=== PATIENT | female | born 1960 | race Caucasian/White ===

== ENCOUNTER 2018-03-31 04:34 | Inpatient (IN) | payer OTHER ==
[~2018-03-31] VITALS: Ht 154.9 cm; Wt 103.5 kg
[2018-03-31] MEDS ORDERED: MELO15TA24 PO (05:19)
[2018-03-31] MEDS ORDERED: SIMV40TA3 PO (05:19)
[2018-03-31] MEDS ORDERED: LIRA0.6P INJ (05:19)
[2018-03-31] MEDS ORDERED: LISI5TAB7 PO (05:19)
[2018-03-31] MEDS ORDERED: LEVO137T3 PO (05:19)
[2018-03-31] MEDS ORDERED: FLUO20CA8 PO (05:19)
[2018-03-31] MEDS ORDERED: IPRA4AER INH (05:19)
[2018-03-31] MEDS ORDERED: INSU100V8 SQ (05:19)
[2018-03-31] MEDS ORDERED: MIRT15TA4 PO (05:19)
--- NOTE | 2018-03-31 05:20 | NUR ---
report from mona cisneros. Pt has no pain at this time. pt a transfer from [place]. med rec complete. lab at bedside
--- NOTE | 2018-03-31 05:53 | NUR ---
LAB CALLS WITH ELEVATED TROP 2.260 AWARE
--- NOTE | 2018-03-31 05:59 | NUR ---
PT ARRIVED ON HEPARIN DRIP AT 1000 UNITS PER HOUR WITH A 5000 UNIT BOLUS. DRIP WAS STARTED PRIOR TO ARRIVAL AT APPROX 0309 AM. DRIP ADJUSTED TO 900 UNITS PER OUR WEIGHT BASED PROTOCOL.ANTI XA DRAWN UPON PTS ARRIVAL. ANTI XA SOULD BE REDRAWN AT 0909 THIS MORNING PER OUR PROTOCOL. PT RESTING. VSS. PT DENIES PAIN. CALL LIGHT IN REACH
[2018-03-31] MEDS ORDERED: HEPARIN 5,000 UNITS/ML, 1ML IV PRN (06:00)
[2018-03-31] MEDS ORDERED: HEPARIN 25,000 UNITS/500ML PMX 500 ML IV PRN (06:00)
--- NOTE | 2018-03-31 07:23 | NUR ---
RECEIVED REPORT AND ASSUMED PT. CARE. PT. IS RESTING WITH THE CP MONITOR IN PLACE. HOSPITAL ADMITTING MD IS AT THE BEDSIDE. PT.'S VITALS ARE STABLE.
--- NOTE | 2018-03-31 07:25 | NUR ---
PT.'S HEPARIN GTT IS INFUSING ON THE PUMP ORDERED.
[2018-03-31] MEDS ORDERED: SODIUM CHLORIDE 0.9% 1,000 ML IV SCH (07:27)
[2018-03-31] MEDS ORDERED: POLYETHYLENE GLYCOL 17 GM PACKET PO PRN (07:30)
[2018-03-31] MEDS ORDERED: ACETAMINOPHEN 325 MG TABLET PO PRN (07:30)
[2018-03-31] MEDS ORDERED: ENALAPRILAT 1.25 MG/ML, 2ML IVPush PRN (07:30)
[2018-03-31] MEDS ORDERED: MORPHINE SULFATE 4 MG/ML, 1ML IVPush PRN (07:30)
[2018-03-31] MEDS ORDERED: BISACODYL 10 MG SUPP PR PRN (07:30)
[2018-03-31] MEDS ORDERED: hydrALAzine 20 MG/ML, 1ML IVPush PRN (07:30)
[2018-03-31] MEDS ORDERED: DOCUSATE 100 MG CAPSULE PO PRN (07:30)
[2018-03-31] MEDS ORDERED: GABAPENTIN 300 MG CAPSULE PO PRN (07:30)
[2018-03-31] MEDS ORDERED: LABETALOL 5MG/ML, 20ML IVPush PRN (07:30)
[2018-03-31 07:48] LABS: MEAN CORPUSCULAR HEMOGLOBIN 30.1 pg (27.0-34.8); MEAN CORPUSCULAR VOLUME 91.4 fL (80-100); MEAN PLATELET VOLUME 8.1 fL (7.4-10.4); PLATELET COUNT 422 x10^3/uL (130-400); RED BLOOD COUNT 4.67 x10^6/uL (3.82-5.3); RED CELL DISTRIBUTION WIDTH 15.5 % (9.6-15.2)
[2018-03-31 07:59] LABS: ALANINE AMINOTRANSFERASE 22 U/L (12-78); ANION GAP 10 mmol/L (5-15); CALCIUM 8.6 mg/dL (8.5-10.1); CHLORIDE 110 mmol/L (98-107); CREATININE 1.17 mg/dL (0.55-1.02)
[2018-03-31] MEDS ORDERED: DEXTROSE 50%, 50ML SYRINGE IVPush PRN (08:00)
[2018-03-31] MEDS ORDERED: DEXTROSE 4 GM TAB.CHEW PO PRN (08:00)
[2018-03-31] MEDS ORDERED: GLUCAGON 1 MG IM PRN (08:00)
[2018-03-31] MEDS: INSULIN LISPRO 100 UNITS/ML, PEN SQ-INSULIN SCH ×4 (08:00→21:57)
[2018-03-31 08:08] LABS: ALKALINE PHOSPHATASE 71 U/L (45-117); BILIRUBIN,TOTAL 0.8 mg/dL (0.2-1.0); THYROID STIMULATING HORMONE 0.111 mIU/L (0.358-3.740); TOTAL PROTEIN 6.4 g/dL (6.4-8.2)
[2018-03-31 08:17] LABS: BASOPHILS # (AUTO) 0.05 x10^3/uL (0-0.1); BASOPHILS % (AUTO) 0 % (0-1); EOSINOPHILS # (AUTO) 0.17 x10^3/uL (0-0.4); EOSINOPHILS % (AUTO) 1 % (1-7); LYMPHOCYTES # (AUTO) 5.15 x10^3/uL (1-3.4); LYMPHOCYTES % (AUTO) 37 % (22-44); MD SCAN; MONOCYTES # (AUTO) 0.29 x10^3/uL (0.2-0.8); MONOCYTES % (AUTO) 2 % (2-9); NEUTROPHILS # (AUTO) 8.26 x10^3/uL (1.8-6.8); NEUTROPHILS % (AUTO) 59 % (42-75)
--- NOTE | 2018-03-31 08:19 | NUR ---
DR. MENON IS AT THE BEDSIDE. IS AWARE OF THE PT.'S TROP LEVEL. PT. IS NPO. HEPARIN IS INFUSING ON THE PUMP ORDERED. REPORT WAS CALLED TO [facility]. PT. IS READY FOR TRANSPORT.
[2018-03-31 08:27] LABS: INTERNATIONAL NORMALIZED RATIO 1.04 (0.93-1.1)
[2018-03-31] MEDS ORDERED: LISINOPRIL 5 MG TABLET PO SCH (09:00)
[2018-03-31 09:10] VITALS: BP 129/84
[2018-03-31] MEDS ORDERED: NITROGLYCERIN 0.4 MG BOTTLE (25 TABS) SL ONE (09:19)
[2018-03-31 09:24] VITALS: BP 121/76
[2018-03-31] MEDS ORDERED: NITROGLYCERIN 0.4 MG/SPRAY SL PRN (09:30)
[2018-03-31] MEDS ORDERED: ALBUTEROL/IPRATROPIUM 2.5MG/0.5MG, 3 ML NPPB PRN (09:30)
[2018-03-31] MEDS ORDERED: BIVALIRUDIN 250 MG ONE (09:45)
[2018-03-31] MEDS ORDERED: HEPARIN 1,000 UNITS/ML, 10ML ONE (09:45)
[2018-03-31] MEDS ORDERED: FENTANYL PF 100 MCG/2ML ONE (09:45)
[2018-03-31] MEDS ORDERED: VERAPAMIL 2.5 MG/ML, 2ML ONE (09:45)
[2018-03-31] MEDS ORDERED: MIDAZOLAM 1 MG/ML, 5ML ONE (09:45)
[2018-03-31] MEDS ORDERED: TICAGRELOR 90 MG TABLET ONE (09:45)
[2018-03-31] MEDS ORDERED: LIDOCAINE-MPF 1%, 5ML ONE (10:09)
[2018-03-31 10:24] LABS: HEMOGLOBIN A1C 8.1 % (4.2-6.3)
[2018-03-31] MEDS: SODIUM CHLORIDE 0.9% 1,000 ML IV SCH ×2 (10:43→20:00)
[2018-03-31] MEDS: SODIUM CHLORIDE FLUSH 10ML SYR IVF SCH ×2 (11:00→21:56)
[2018-03-31] MEDS: FLUOXETINE HCL 20 MG CAPSULE PO SCH (12:55)
[2018-03-31] MEDS: PANTOPRAZOLE 40 MG IV IVPush SCH (12:55)
[2018-03-31] MEDS: LEVOTHYROXINE 137 MCG TABLET PO SCH (12:56)
[2018-03-31] MEDS: NICOTINE 14MG/24 HR PATCH.TD24 TD SCH (12:56)
[2018-03-31 12:58] VITALS: BP 105/66
[2018-03-31 14:00] VITALS: BP 112/77
[2018-03-31] MEDS: CLOPIDOGREL 75 MG TABLET PO SCH (16:22)
[2018-03-31] MEDS: METOPROLOL TARTRATE 25 MG TABLET PO SCH (16:22)
[2018-03-31] MEDS: ASPIRIN 81 MG TABLET EC PO SCH (16:22)
[2018-03-31 18:29] VITALS: BP 110/74
[2018-03-31 19:48] LABS: AMPHETAMINE SCREEN, URINE Negative (Negative); BARBITURATE SCREEN, URINE Negative (Negative); BENZODIAZEPINE SCREEN, URINE Positive (Negative); CANNABINOID SCREEN, URINE Positive (Negative); COCAINE SCREEN, URINE Negative (Negative); METHADONE SCREEN, URINE Negative (Negative); OPIATE SCREEN, URINE Negative (Negative)
[2018-03-31] MEDS ORDERED: MIRTAZAPINE 15 MG TABLET PO SCH (21:00)
[2018-03-31] MEDS ORDERED: INSULIN GLARGINE 100 UNITS/ML, PEN SQ-INSULIN SCH (21:00)
[2018-03-31] MEDS ORDERED: SIMVASTATIN 40 MG TABLET PO SCH (21:00)
[2018-04-01 02:06] VITALS: BP 106/70
[2018-04-01] MEDS: SODIUM CHLORIDE 0.9% 1,000 ML IV SCH (04:00)
[2018-04-01 05:09] LABS: BASOPHILS # (AUTO) 0.26 x10^3/uL (0-0.1); BASOPHILS % (AUTO) 2 % (0-1); EOSINOPHILS # (AUTO) 0.16 x10^3/uL (0-0.4); EOSINOPHILS % (AUTO) 1 % (1-7); LYMPHOCYTES # (AUTO) 3.49 x10^3/uL (1-3.4); LYMPHOCYTES % (AUTO) 29 % (22-44); MD NO; MEAN CORPUSCULAR HEMOGLOBIN 31.1 pg (27.0-34.8); MEAN CORPUSCULAR VOLUME 91.3 fL (80-100); MEAN PLATELET VOLUME 7.9 fL (7.4-10.4); MONOCYTES # (AUTO) 0.88 x10^3/uL (0.2-0.8); MONOCYTES % (AUTO) 7 % (2-9); NEUTROPHILS # (AUTO) 7.37 x10^3/uL (1.8-6.8); NEUTROPHILS % (AUTO) 61 % (42-75); PLATELET COUNT 360 x10^3/uL (130-400); RED BLOOD COUNT 4.42 x10^6/uL (3.82-5.3); RED CELL DISTRIBUTION WIDTH 15.1 % (9.6-15.2)
[2018-04-01 05:11] LABS: ALANINE AMINOTRANSFERASE 30 U/L (12-78); ALBUMIN 2.6 g/dL (3.4-5.0); ANION GAP 4 mmol/L (5-15); CALCIUM 8.4 mg/dL (8.5-10.1); CHLORIDE 110 mmol/L (98-107)
[2018-04-01 05:15] LABS: ALKALINE PHOSPHATASE 71 U/L (45-117); BILIRUBIN,TOTAL 0.5 mg/dL (0.2-1.0); CHOL/HDL RATIO 5.5; CHOLESTEROL, TOTAL 169 mg/dL (140-239); HDL CHOL % 18 % (28-40); HDL CHOLESTEROL (DIRECT) 31 mg/dL (40-60); LDL CHOLESTEROL,CALCULATED 78 mg/dL (54-169); LDL/HDL RATIO 2.5 (0.5-3.0); TRIGLYCERIDES 301 mg/dL (50-200); VLDL CHOLESTEROL 60 mg/dL (0-25)
[2018-04-01] MEDS: ASPIRIN 81 MG TABLET EC PO SCH (05:59)
[2018-04-01] MEDS: METOPROLOL TARTRATE 25 MG TABLET PO SCH (06:00)
[2018-04-01] MEDS: LEVOTHYROXINE 137 MCG TABLET PO SCH (06:00)
[2018-04-01] MEDS: INSULIN LISPRO 100 UNITS/ML, PEN SQ-INSULIN SCH ×3 (07:00→16:00)
[2018-04-01 08:08] VITALS: BP 107/74
[2018-04-01] MEDS: NICOTINE 14MG/24 HR PATCH.TD24 TD SCH (09:26)
[2018-04-01] MEDS: PANTOPRAZOLE 40 MG IV IVPush SCH (09:26)
[2018-04-01] MEDS: SODIUM CHLORIDE FLUSH 10ML SYR IVF SCH (09:27)
[2018-04-01] MEDS: FLUOXETINE HCL 20 MG CAPSULE PO SCH (09:27)
[2018-04-01] MEDS: CLOPIDOGREL 75 MG TABLET PO SCH (09:27)
[2018-04-01 13:07] VITALS: BP 117/81
[2018-04-01] MEDS ORDERED: CLOP75TA PO (14:13)
[2018-04-01] MEDS ORDERED: NICO-486 TD (14:13)
[2018-04-01] MEDS ORDERED: ASPI81TA45 PO (14:13)
[2018-04-01] MEDS ORDERED: METO25TA35 PO (14:13)
== END 2018-04-01 18:27 | disposition home or self-care (01) | DRG 281 ==
LOC: ED 07:31 → EDIP 07:32 → 5SO 08:53
PROVIDERS: ADMIT Hospitalist; ATTEND Hospitalist
PROC: 4A023N7 Measurement of Cardiac Sampling and Pressure, Left Heart, Percutaneous Approach (ICD-10-PCS; principal; 2018-03-31)
PROC: B2111ZZ Fluoroscopy of Multiple Coronary Arteries using Low Osmolar Contrast (ICD-10-PCS; 2018-03-31)
PROC: B2151ZZ Fluoroscopy of Left Heart using Low Osmolar Contrast (ICD-10-PCS; 2018-03-31)
DX: I21.4 Non-ST elevation (NSTEMI) myocardial infarction (principal); I51.81 Takotsubo syndrome; E03.9 Hypothyroidism, unspecified; E11.319 Type 2 diabetes mellitus with unspecified diabetic retinopathy without macular edema; E78.00 Pure hypercholesterolemia, unspecified; E78.5 Hyperlipidemia, unspecified; F32.9 Major depressive disorder, single episode, unspecified; I10 Essential (primary) hypertension; I25.10 Atherosclerotic heart disease of native coronary artery without angina pectoris; J44.9 Chronic obstructive pulmonary disease, unspecified; Z72.0 Tobacco use; Z90.710 Acquired absence of both cervix and uterus; Z99.81 Dependence on supplemental oxygen; Z88.8 Allergy status to other drugs, medicaments and biological substances; Z88.1 Allergy status to other antibiotic agents
CPT/HCPCS: 36415; 71045; 80053; 80061; 80307; 82962; 83036; 83690; 83735; 83880; 84100; 84443; 84484; 85025; 85379; 85520; 85610; 93005; 93306; 93458; 96365; 96366; 99156; 99157; C1769; C1894; G0378; J0583; J1644; J2250; J3010; C9113; J1815; Q9967